=== PATIENT | male | born 1995 | race Caucasian/White ===

== ENCOUNTER 2017-05-04 00:22 | Emergency (ER) | payer MEDICAID, OTHER ==
[~2017-05-04] VITALS: Ht 170.2 cm; Wt 55.0 kg
[2017-05-04] MEDS ORDERED: CLEO150C PO (01:43)
[2017-05-04 02:16] VITALS: BP 108/71
== END 2017-05-04 02:18 | disposition home or self-care (01) ==
LOC: M ED 00:22
DX: K02.9 Dental caries, unspecified (principal)

== ENCOUNTER 2017-08-11 15:01 | Emergency (ER) | payer OTHER, SELFPAY ==
[~2017-08-11] VITALS: Ht 167.6 cm; Wt 58.2 kg
[~2017-08-11 15:01] MED LIST: CLEO150C PO
[2017-08-11] MEDS ORDERED: IBUPROFEN 600 MG TAB PO ONE (17:30)
[2017-08-11] MEDS ORDERED: NAPR500T PO (17:32)
[2017-08-11] MEDS ORDERED: CYCL10TA PO (17:32)
[2017-08-11 17:35] VITALS: BP 123/79
== END 2017-08-11 17:38 | disposition home or self-care (01) ==
LOC: M ED 15:01
DX: S16.1XXA Strain of muscle, fascia and tendon at neck level, initial encounter (principal); X58.XXXA Exposure to other specified factors, initial encounter; Y92.9 Unspecified place or not applicable; Y93.89 Activity, other specified; Y99.9 Unspecified external cause status; F17.200 Nicotine dependence, unspecified, uncomplicated

== ENCOUNTER 2018-03-29 13:29 | Emergency (ER) | payer SELFPAY | END 2018-03-29 16:15 | disposition home or self-care (01) | LOC: M ED 13:29 | DX: K08.89 Other specified disorders of teeth and supporting structures (principal); K13.79 Other lesions of oral mucosa; F17.200 Nicotine dependence, unspecified, uncomplicated | CPT/HCPCS: 99283 ==

== ENCOUNTER 2018-04-14 06:28 | Emergency (ER) | payer BC, SELFPAY ==
[2018-04-14] MEDS: IBUPROFEN 800 MG TAB PO (07:30)
== END 2018-04-14 07:37 | disposition home or self-care (01) ==
LOC: M ED 06:28
DX: S43.52XA Sprain of left acromioclavicular joint, initial encounter (principal); W19.XXXA Unspecified fall, initial encounter; Y92.099 Unspecified place in other non-institutional residence as the place of occurrence of the external cause; Y93.89 Activity, other specified; Y99.9 Unspecified external cause status; Z72.0 Tobacco use
CPT/HCPCS: 73030

== ENCOUNTER 2018-06-15 13:00 | Emergency (ER) | payer BC ==
[2018-06-15 13:34] LABS: KETONE, URINE AUTO RFX NEGATIVE (NEGATIVE); LEUKOCYTE ESTERASE UR AUTO RFX NEGATIVE (NEGATIVE); MUCUS, URINE RFX SMALL (NEGATIVE); NITRITE, URINE AUTO RFX NEGATIVE (NEGATIVE); RBC, URINE AUTO RFX 2 /HPF (0-3); SPECIFIC GRAVITY UR AUTO RFX 1.005 (1.002-1.035); SQUAM EPITHELIAL CELL UR AURFX 0 /HPF (0-6); WBC, URINE AUTO RFX 0 /HPF (0-3)
[2018-06-15 14:23] LABS: BASO # 0.1 10^3/uL (0.0-0.2); BASO % 0.4 % (0.0-1.0); EOS # 0.3 10^3/uL (0.0-0.50); HEMOGLOBIN 14.3 g/dl (13.5-17.5); IMMATURE GRANULOCYTE % 0.3 % (0-3.0); LYMPH # 2.6 10^3/uL (1.5-6.5); LYMPH % 20.2 % (24.0-44.0); MEAN CORPUSCULAR HEMOGLOBIN 30.2 pg (27.0-33.0); MEAN CORPUSCULAR VOLUME 88.6 fl (80.0-96.0); MONO # 1.5 10^3/uL (0.0-0.8); MONO % 11.1 % (0.0-5.0); NEUTROPHILS # 8.6 10^3/uL (1.8-7.7); PLATELET COUNT, AUTOMATED 254 10^3/uL (150-450); RED BLOOD COUNT 4.74 10^6/uL (4.30-6.10); RED CELL DISTRIBUTION WIDTH 12.9 % (11.5-14.5); WHITE BLOOD COUNT 13.1 10^3/uL (4.0-10.0)
[2018-06-15] MEDS: NS 1,000 ML IV (14:26)
[2018-06-15] MEDS: KETOROLAC 30 MG/ML VIAL (J1885) IV (14:30)
[2018-06-15 15:04] LABS: ALBUMIN/GLOBULIN RATIO 1.21 (1.00-1.93); ALKALINE PHOSPHATASE 74 U/L (45-117); ALT/SGPT 24 U/L (12-78); AMYLASE 92 U/L (25-115); ANION GAP 7 MEQ/L (8-16); AST/SGOT 21 U/L (7-37); BILIRUBIN,DIRECT < 0.1 MG/DL (0.0-0.2); BILIRUBIN,TOTAL 0.4 MG/DL (0.2-1.0); BLOOD UREA NITROGEN 27 MG/DL (7-18); CALCIUM LEVEL 8.7 MG/DL (8.5-10.1); CARBON DIOXIDE LEVEL 28 MEQ/L (21-32); CHLORIDE LEVEL 105 MEQ/L (98-107); CREATININE FOR GFR 2.29 MG/DL (0.70-1.30); GLOMERULAR FILTRATION RATE 37.9 (>60); GLUCOSE, FASTING 84 MG/DL (70-100); LIPASE 709 U/L (73-393); POTASSIUM SERUM 3.7 MEQ/L (3.5-5.1); SODIUM LEVEL 140 MEQ/L (136-145); TOTAL PROTEIN 7.3 GM/DL (6.4-8.2)
== END 2018-06-15 15:24 | disposition home or self-care (01) ==
LOC: M ED 13:00
DX: R74.8 Abnormal levels of other serum enzymes (principal); Z84.1 Family history of disorders of kidney and ureter; F17.200 Nicotine dependence, unspecified, uncomplicated
CPT/HCPCS: J1885

== ENCOUNTER → 2018-06-28 | Outpatient (CLI) | payer BC ==
[2018-06-28 10:59] LABS: APPEARANCE, URINE CLEAR (CLEAR); BACTERIA, URINE AUTO NEGATIVE (NEGATIVE); BILIRUBIN, URINE AUTO NEGATIVE (NEGATIVE); BLOOD, URINE BLOOD 1+ (NEGATIVE); COLOR, URINE YELLOW (YELLOW); GLUCOSE, URINE (UA) AUTO NEGATIVE (NEGATIVE); KETONE, URINE AUTO NEGATIVE (NEGATIVE); LEUKOCYTE ESTERASE, URINE AUTO NEGATIVE (NEGATIVE); NITRITE, URINE AUTO NEGATIVE (NEGATIVE); PROTEIN, URINE AUTO NEGATIVE (NEGATIVE); RBC, URINE AUTO 2 /HPF (0-3); SPECIFIC GRAVITY URINE AUTO 1.018 (1.002-1.035); SQUAMOUS EPITHELIAL CELL UR AU 0 /HPF (0-6); UROBILINOGEN, URINE AUTO 0.2 mg/dL (0.0-2.0); WBC, URINE AUTO 0 /HPF (0-3)
[2018-06-28 11:26] LABS: ALBUMIN 4.4 GM/DL (3.2-5.2); ALBUMIN/GLOBULIN RATIO 1.38 (1.00-1.93); ALKALINE PHOSPHATASE 80 U/L (45-117); ALT/SGPT 22 U/L (12-78); ANION GAP 5 MEQ/L (8-16); AST/SGOT 18 U/L (7-37); BILIRUBIN,TOTAL 0.4 MG/DL (0.2-1.0); BLOOD UREA NITROGEN 13 MG/DL (7-18); CALCIUM LEVEL 9.7 MG/DL (8.5-10.1); CARBON DIOXIDE LEVEL 30 MEQ/L (21-32); CHLORIDE LEVEL 106 MEQ/L (98-107); CREATININE FOR GFR 0.96 MG/DL (0.70-1.30); GLOMERULAR FILTRATION RATE > 60.0 (>60); GLUCOSE, FASTING 86 MG/DL (70-100); LIPASE 143 U/L (73-393); POTASSIUM SERUM 4.4 MEQ/L (3.5-5.1); SODIUM LEVEL 141 MEQ/L (136-145); TOTAL PROTEIN 7.6 GM/DL (6.4-8.2)
== END ==
LOC: M LAB 10:10
DX: R89.9 Unspecified abnormal finding in specimens from other organs, systems and tissues (principal); R31.9 Hematuria, unspecified
CPT/HCPCS: 83690

== ENCOUNTER 2018-07-16 11:35 | Emergency (ER) | payer OTHER, BC ==
[2018-07-16] MEDS: PERCOCET 5MG/325MG TAB PO (12:42)
== END 2018-07-16 14:31 | disposition home or self-care (01) ==
LOC: M ED 11:35
DX: S40.021A Contusion of right upper arm, initial encounter (principal); W00.2XXA Other fall from one level to another due to ice and snow, initial encounter; Y92.89 Other specified places as the place of occurrence of the external cause; Y99.0 Civilian activity done for income or pay; F17.210 Nicotine dependence, cigarettes, uncomplicated
CPT/HCPCS: 73030

== ENCOUNTER → 2018-08-25 | Outpatient (REF) | payer OTHER, BC ==
[~2018-08-25] MED LIST changes: +ACET30TAB PO; +AMOX500C PO; +CYCL10TA PO; +IBUP80TA PO; +NAPR-50 PO; +PERC5TAB12 PO
[2018-08-25 14:05] LABS: APPEARANCE, URINE CLEAR (CLEAR); BACTERIA, URINE AUTO NEGATIVE (NEGATIVE); BILIRUBIN, URINE AUTO NEGATIVE (NEGATIVE); BLOOD, URINE BLOOD 2+ (NEGATIVE); COLOR, URINE YELLOW (YELLOW); GLUCOSE, URINE (UA) AUTO NEGATIVE (NEGATIVE); KETONE, URINE AUTO NEGATIVE (NEGATIVE); LEUKOCYTE ESTERASE, URINE AUTO NEGATIVE (NEGATIVE); NITRITE, URINE AUTO NEGATIVE (NEGATIVE); PROTEIN, URINE AUTO NEGATIVE (NEGATIVE); RBC, URINE AUTO 9 /HPF (0-3); SPECIFIC GRAVITY URINE AUTO 1.017 (1.002-1.035); SQUAMOUS EPITHELIAL CELL UR AU 0 /HPF (0-6); UROBILINOGEN, URINE AUTO 0.2 mg/dL (0.0-2.0); WBC, URINE AUTO 2 /HPF (0-3)
== END ==
LOC: M SMT 12:57
PROVIDERS: ATTEND Obstetrics & Gynecology
DX: R31.29 Other microscopic hematuria (principal)

== ENCOUNTER 2020-03-31 19:17 | Emergency (ER) | payer OTHER ==
[~2020-03-31 19:17] MED LIST changes: +ACET-716 PO; -ACET30TAB PO; +CYCL-707 PO; -CYCL10TA PO; -NAPR-50 PO; +NAPR-837 PO
== END 2020-03-31 20:35 | disposition home or self-care (01) ==
LOC: M ED 19:17
DX: S71.131A Puncture wound without foreign body, right thigh, initial encounter (principal); S81.832A Puncture wound without foreign body, left lower leg, initial encounter; W26.8XXD Contact with other sharp object(s), not elsewhere classified, subsequent encounter; Y92.89 Other specified places as the place of occurrence of the external cause

== ENCOUNTER 2022-05-07 21:57 | Emergency (ER) | payer OTHER ==
[~2022-05-07] VITALS: Ht 170.2 cm; Wt 54.5 kg
[2022-05-07] MEDS ORDERED: ACETAMINOPHEN TAB 650MG DOSE (2X325MG) PO ONE (22:05)
[2022-05-07 22:07] VITALS: BP 139/78
== END 2022-05-07 23:19 | disposition home or self-care (01) ==
LOC: EDBD 21:57 → M ED 21:57
DX: S90.32XA Contusion of left foot, initial encounter (principal); W22.8XXA Striking against or struck by other objects, initial encounter; Y92.009 Unspecified place in unspecified non-institutional (private) residence as the place of occurrence of the external cause; Y93.89 Activity, other specified; Y99.9 Unspecified external cause status

== ENCOUNTER 2022-05-08 23:25 | Emergency (ER) | payer OTHER ==
[~2022-05-08] VITALS: Ht 170.2 cm; Wt 75.0 kg
[2022-05-08 23:58] LABS: HEMATOCRIT 46.7 % (42.0-52.0); HEMOGLOBIN 15.4 g/dl (13.5-17.5); MEAN CORPUSCULAR HEMOGLOBIN 29.4 pg (27.0-33.0); MEAN CORPUSCULAR VOLUME 89.1 fl (80.0-96.0); PLATELET COUNT, AUTOMATED 301 10^3/uL (150-450); RED BLOOD COUNT 5.24 10^6/uL (4.30-6.10); WHITE BLOOD COUNT 15.1 10^3/uL (4.0-10.0)
[2022-05-09 00:34] LABS: RSV AMPLIFICATION NEGATIVE (NEGATIVE)
[2022-05-09 00:37] LABS: AMPHETAMINES LEVEL URINE POSITIVE (NEGATIVE); BARBITURATES URINE NEGATIVE (NEGATIVE); BENZODIAZEPINES URINE NEGATIVE (NEGATIVE); CANNABINOIDS URINE NEGATIVE (NEGATIVE); COCAINE METABOLITE URINE NEGATIVE (NEGATIVE); METHADONE URINE NEGATIVE (NEGATIVE); OPIATES URINE POSITIVE (NEGATIVE); PHENCYCLIDINE URINE NEGATIVE (NEGATIVE)
[2022-05-09 00:51] LABS: ACETAMINOPHEN LEVEL < 2.0 UG/ML (10.0-30.0); ALBUMIN 4.1 GM/DL (3.2-5.2); ALT/SGPT 24 U/L (12-78); BILIRUBIN,DIRECT < 0.1 MG/DL (0.0-0.2); BILIRUBIN,TOTAL 0.2 MG/DL (0.2-1.0); BLOOD UREA NITROGEN 7 MG/DL (7-18); CALCIUM LEVEL 8.8 MG/DL (8.5-10.1); CARBON DIOXIDE LEVEL 30 MEQ/L (21-32); CHLORIDE LEVEL 104 MEQ/L (98-107); ETHYL ALCOHOL (ETHANOL) 0.006 % (0.000-0.010); GLOMERULAR FILTRATION RATE > 60.0 (>60); GLUCOSE, FASTING 97 MG/DL (70-100); POTASSIUM SERUM 3.6 MEQ/L (3.5-5.1); SALICYLATE LEVEL 2.8 MG/DL (5.0-30.0); SODIUM LEVEL 139 MEQ/L (136-145); TOTAL PROTEIN 7.2 GM/DL (6.4-8.2)
[2022-05-09 01:39] VITALS: BP 126/78
== END 2022-05-09 01:40 | disposition home or self-care (01) ==
LOC: M ED 23:25
DX: F43.0 Acute stress reaction (principal); R45.851 Suicidal ideations; F10.288 Alcohol dependence with other alcohol-induced disorder; F17.200 Nicotine dependence, unspecified, uncomplicated

== ENCOUNTER 2022-07-28 12:25 | Emergency (ER) | payer OTHER ==
[~2022-07-28] VITALS: Ht 170.2 cm; Wt 59.9 kg
[2022-07-28 12:25] VITALS: BP 130/70
== END 2022-07-28 16:04 | disposition left against medical advice (07) ==
LOC: M ED 12:25
DX: Z53.21 Procedure and treatment not carried out due to patient leaving prior to being seen by health care provider (principal)